=== PATIENT | female | born 1995 | race American Indian/Alaskan Native ===

== ENCOUNTER 2021-08-24 22:52 | Emergency (ER) | payer SELFPAY ==
[2021-08-24 23:04] VITALS: BP 146/87
--- NOTE | 2021-08-25 00:26 | XRay Report ---
CHEST 2 VIEWS INDICATION / CLINICAL INFORMATION: CHEST PAIN. COMPARISON: None available. FINDINGS: SUPPORT DEVICES: None. HEART / MEDIASTINUM: Heart size and mediastinal contour appear within normal limits. LUNGS / PLEURA: No significant pulmonary or pleural abnormality. No pneumothorax. BONES: No significant osseous abnormality. ADDITIONAL FINDINGS: No significant additional findings. IMPRESSION: 1. No active cardiopulmonary disease. Signer Name: Robbie Garcia II, MD Signed: 08/25/2021 12:22 AM Workstation Name: [id number]
--- NOTE | 2021-08-25 18:56 | Electrocardiograph Report ---
[facility] Test Date: 2021-08-24 Test Time: 22:59:55 Pat Name: ARMIN TAYLOR Department: Room: Gender: F Bricklayer Helper: NIKIA : 1995 Requested By: ED DOC Order Number: [id number] Reading MD: Grzegorz Peters Measurements Intervals [place] Rate: 102 P: 73 DC: 147 QRS: 84 QRSD: 83 T: 34 QT: 322 QTc: 420 Interpretive Statements Sinus tachycardia Right atrial enlargement No previous ECG available for comparison Electronically Signed On 08-25-2021 18:55:45 EDT by Grzegorz Peters
== END 2021-08-25 11:11 | disposition left against medical advice (07) ==
LOC: ED 22:52
DX: R07.9 Chest pain, unspecified (principal); R06.02 Shortness of breath; Z53.21 Procedure and treatment not carried out due to patient leaving prior to being seen by health care provider
CPT/HCPCS: 71046; 93005